=== PATIENT | male | born 1995 | race Hispanic/Latino ===

== ENCOUNTER 2018-09-07 15:52 | Emergency (ER) | payer MEDICAID, OTHER ==
[~2018-09-07 15:52] MED LIST: ESOM40CA PO
[2018-09-07] MEDS ORDERED: IBUPROFEN 600 MG TABLET ONE (16:37)
== END 2018-09-07 16:40 | disposition home or self-care (01) ==
LOC: EDH 15:52
DX: S39.012A Strain of muscle, fascia and tendon of lower back, initial encounter (principal); Z72.0 Tobacco use; V59.49XA Driver of pick-up truck or van injured in collision with other motor vehicles in traffic accident, initial encounter; Y93.89 Activity, other specified; Y92.488 Other paved roadways as the place of occurrence of the external cause; Y99.8 Other external cause status

== ENCOUNTER 2019-04-10 12:40 | Emergency (ER) | payer OTHER ==
[2019-04-10] MEDS ORDERED: LIDOCAINE HCL 2% VISCOUS 15 ML UDCUP ONE (13:26)
[2019-04-10] MEDS ORDERED: SODIUM CHLORIDE 0.9% 1000ML 1,000 ML IV ONE (13:26)
[2019-04-10] MEDS ORDERED: ONDANSETRON HCL 4 MG/2 ML VIAL ONE (13:27)
[2019-04-10] MEDS ORDERED: MAG HYDROX/AL HYDROX/SIMETH ES 30 ML SUSP UDCUP ONE (13:27)
[2019-04-10 13:45] LABS: BASOPHILS % (AUTO) 0.4 % (0.0-5.0); EOSINOPHILS % (AUTO) 0.1 % (0.0-8.0); HEMATOCRIT 47.7 % (42-54); LYMPHOCYTES % (AUTO) 15.8 % (21.0-51.0); MEAN CORPUSCULAR HEMOGLOBIN 30.2 pg (27.0-33.0); MEAN CORPUSCULAR HGB CONC 34.8 g/dL (32.0-36.0); MEAN CORPUSCULAR VOLUME 86.6 fL (80-100); MONOCYTES % (AUTO) 6.3 % (3.0-13.0); NEUTROPHILS % (AUTO) 77.4 % (40.0-77.0); NUCLEATED RED BLOOD CELLS 0.1 % (0.0-0.19); PLATELET COUNT (AUTO) 204 K/uL (130-400); RED CELL DISTRIBUTION WIDTH 13.6 % (11.0-15.5); WHITE BLOOD COUNT (AUTO) 9.4 K/uL (4.8-10.8)
[2019-04-10 14:04] LABS: POTASSIUM 3.8 mmol/L (3.5-5.1)
[2019-04-10 14:09] LABS: ALBUMIN 3.5 g/dL (3.5-5.0); BILIRUBIN,TOTAL 0.4 mg/dL (0.2-1.0); TOTAL PROTEIN, SERUM 6.4 g/dL (6.0-8.3)
[2019-04-10 14:32] LABS: APPEARANCE,URINE Cloudy (CLEAR); BILIRUBIN,URINE Negative (NEGATIVE); COLOR,URINE Yellow (YELLOW); GLUCOSE, URINE (UA) Negative (NEGATIVE); KETONES,URINE Negative (NEGATIVE); LEUKOCYTE ESTERASE ,URINE Negative (NEGATIVE); NITRATE,URINE Negative (NEGATIVE); OCCULT BLOOD,URINE Negative (NEGATIVE); PH,URINE 7.5 (5.0-8.0); PROTEIN,URINE Trace mg/dL (NEGATIVE)
[2019-04-10 14:46] LABS: AMORPHOUS SEDIMENT,UR Moderate /LPF (None Seen); BACTERIA,URINE Few /HPF (None Seen); MUCUS,URINE Many LPF (None Seen); SPERM,URINE Few /HPF (None Seen)
== END 2019-04-10 15:22 | disposition home or self-care (01) ==
LOC: EDH 12:40
DX: K29.00 Acute gastritis without bleeding (principal); Z72.0 Tobacco use
CPT/HCPCS: 36415; 80053; 81001; 83690; 85025; 96361; 96374; 99285; J2405; J7030

== ENCOUNTER 2022-04-17 12:45 | Emergency (ER) | payer OTHER ==
[~2022-04-17] VITALS: Ht 182.9 cm; Wt 102.1 kg
[2022-04-17 13:22] LABS: BASOPHILS % (AUTO) 0.1 % (0.0-5.0); EOSINOPHILS % (AUTO) 0.7 % (0.0-8.0); HEMATOCRIT 44.3 % (42-54); LYMPHOCYTES % (AUTO) 22.6 % (21.0-51.0); MEAN CORPUSCULAR HEMOGLOBIN 28.8 pg (27.0-33.0); MEAN CORPUSCULAR HGB CONC 34.1 g/dL (32.0-36.0); MEAN CORPUSCULAR VOLUME 84.4 fL (79-99); MONOCYTES % (AUTO) 6.4 % (3.0-13.0); NEUTROPHILS % (AUTO) 69.9 % (40.0-77.0); PLATELET COUNT (AUTO) 246 K/uL (130-400); RED BLOOD CELL COUNT(AUTO) 5.25 MIL/uL (4.50-6.20); RED CELL DISTRIBUTION WIDTH 13.2 % (11.0-15.5); WHITE BLOOD COUNT (AUTO) 8.7 K/uL (4.8-10.8)
[2022-04-17 13:32] LABS: CREATININE 1.1 mg/dL (0.5-1.5); POTASSIUM 4.1 mmol/L (3.5-5.1)
[2022-04-17 13:37] LABS: ALBUMIN 3.9 g/dL (3.5-5.0); TOTAL PROTEIN, SERUM 7.6 g/dL (6.0-8.3)
[2022-04-17] MEDS ORDERED: CEPH500B PO (15:44)
[2022-04-17] MEDS ORDERED: CEFTRIAXONE 1G VIAL ONE (15:53)
[2022-04-17] MEDS ORDERED: CEFTRIAXONE 1G VIAL IM ONE (16:00)
[2022-04-17] MEDS ORDERED: CLIN-141 PO (16:05)
[2022-04-17 16:08] VITALS: BP 122/67
== END 2022-04-17 16:08 | disposition home or self-care (01) ==
LOC: EDH 12:52
DX: L02.214 Cutaneous abscess of groin (principal)
CPT/HCPCS: 99283; 10060; 80053; 85025; 36415; J0696

== ENCOUNTER 2024-01-28 10:35 | Emergency (ER) | payer BC ==
[~2024-01-28] VITALS: Ht 182.9 cm; Wt 59.0 kg
[~2024-01-28 10:35] MED LIST changes: +CLIN-141 PO
[2024-01-28 11:23] LABS: APPEARANCE,URINE CLEAR (CLEAR); BILIRUBIN,URINE NEGATIVE (NEGATIVE); COLOR,URINE LIGHT-YELLOW (YELLOW); GLUCOSE, URINE (UA) NEGATIVE (NEGATIVE); KETONES,URINE NEGATIVE (NEGATIVE); LEUKOCYTE ESTERASE ,URINE NEGATIVE Leu/uL (NEGATIVE); NITRATE,URINE NEGATIVE (NEGATIVE); OCCULT BLOOD,URINE NEGATIVE (NEGATIVE); PH,URINE 6.5 (5.0-8.0); PROTEIN,URINE NEGATIVE (NEGATIVE); UROBILINOGEN,URINE 0.2 mg/dL (0.2-1.0)
[2024-01-28] MEDS: IBUPROFEN 800 MG TAB PO ONE (11:24)
[2024-01-28 11:27] LABS: ADD UA MICROSCOPIC NO
[2024-01-28 11:30] LABS: HEMATOCRIT 44.9 % (42-54); MEAN CORPUSCULAR HEMOGLOBIN 28.8 pg (27.0-33.0); MEAN CORPUSCULAR HGB CONC 34.3 g/dL (32.0-36.0); MEAN CORPUSCULAR VOLUME 83.9 fL (79-99); PLATELET COUNT (AUTO) 233 K/uL (130-400); RED BLOOD CELL COUNT(AUTO) 5.35 MIL/uL (4.50-6.20); RED CELL DISTRIBUTION WIDTH 13.1 % (11.0-15.5); WHITE BLOOD COUNT (AUTO) 9.5 K/uL (4.8-10.8)
[2024-01-28 11:40] LABS: BASOPHILS # (AUTO) 0.03 K/uL (0.00-0.20); BASOPHILS % (AUTO) 0.3 % (0.0-5.0); EOSINOPHILS # (AUTO) 0.04 K/uL (0.00-0.70); EOSINOPHILS % (AUTO) 0.4 % (0.0-8.0); IMMATURE GRANULOCYTE ABSOLUTE 0.02 K/uL (0-1); LYMPHOCYTES # (AUTO) 1.8 K/uL (1.0-4.8); LYMPHOCYTES % (AUTO) 18.2 % (21.0-51.0); MONOCYTES # (AUTO) 0.7 K/uL (0.1-1.0); MONOCYTES % (AUTO) 7.1 % (3.0-13.0); NEUTROPHILS # (AUTO) 7.1 K/uL (1.8-7.7); NEUTROPHILS % (AUTO) 73.8 % (40.0-77.0)
[2024-01-28 12:06] LABS: POTASSIUM 4.2 mmol/L (3.5-5.1)
[2024-01-28] MEDS ORDERED: IBUP-2077 PO (12:15)
[2024-01-28 12:26] VITALS: BP 126/80; PULSE 80; RESP 18; O2SAT 97
== END 2024-01-28 12:27 | disposition home or self-care (01) ==
LOC: EDH 10:35
DX: G89.29 Other chronic pain (principal); M54.59 Other low back pain; Z79.899 Other long term (current) drug therapy; Z98.890 Other specified postprocedural states
CPT/HCPCS: 36415; 80048; 81003; 85025

== ENCOUNTER 2024-08-25 18:34 | Emergency (ER) | payer SELFPAY ==
[~2024-08-25] VITALS: Ht 180.3 cm; Wt 104.3 kg
[~2024-08-25 18:34] MED LIST changes: +IBUP-2077 PO
--- NOTE | 2024-08-25 19:05 | HMCIMG ---
CT CHEST WITH CONTRAST. CT ABDOMEN WITH CONTRAST. CT PELVIS WITH CONTRAST INDICATION: Lower back pain after fall from ladder TECHNIQUE: Routine 5 mm thick axial images were acquired from the thoracic inlet through the pelvis after the intravenous administration of 100 mL of Isovue [address] was performed with one or more of the following dose reduction techniques: Automated exposure control, adjustment of the mA and/or kV according to patient size, or use of iterative reconstruction technique. COMPARISON: None FINDINGS: CT CHEST: The heart size is normal. No pericardial effusion noted. No evidence for thoracic aortic aneurysm or dissection.. The trachea and airways are patent. No evidence for pulmonary nodule, consolidation, cavitary lesion, or other abnormal pulmonary parenchymal opacity. No axillary, hilar, or mediastinal lymphadenopathy. No pleural effusion or pneumothorax identified. CT ABDOMEN: The liver is normal in size and smooth in contour without lesions or biliary duct dilation. The spleen is normal in size.. The gallbladder appears normal. The pancreas appears normal without pancreatic duct dilation. The adrenal glands appear normal. Both kidneys appear normal. . No evidence for intra-abdominal free air or free or organized fluid collection. No aortic aneurysmal dilation.. CT PELVIS: Moderate posterior right hip soft tissue swelling. No evidence for free air or free or organized pelvic fluid collection. No significant pelvic adenopathy detected. Visualized small and large bowel loops appear unremarkable. Terminal ileum also appears normal. The appendix appears normal. Shallow posterior disc-osteophyte complex formation at the L4-L5 level contributing to mild central canal stenosis. Lumbar spine appears normal and visible portions of the thoracic spine appear normal. IMPRESSION: Moderate posterior right hip soft tissue swelling without evidence for any acute thoracic, abdominal, pelvic, or spinal injury.
[2024-08-25] MEDS: HYDROcodone/APAP 5/325 1 TAB TABLET PO ONE (19:15)
[2024-08-25 19:33] VITALS: BP 138/86; PULSE 84; RESP 18; TEMP 98.6; O2SAT 100
--- NOTE | 2024-08-25 19:36 | ERN ---
General Chief Complaint: Low Back Pain/Injury Stated Complaint: FALL FROM LADDER, BACK PAIN Time Seen by MD: 18:37 Time Seen by Midlevel: 18:37 Source: patient History of Present Illness Initial Comments Patient is a 29-year-old male with no significant past medical history presenting to the emergency department with right-sided hip pain. Patient states he was on a ladder approximately four steps up when he accidentally lost balance and fell onto his right side onto concrete. Denies any head injury or loss of consciousness. The patient was able to ambulate after the fall but is having significant amount of pain to his right hip. Denies any other symptoms at this time. Denies any urinary/bowel incontinence. Allergies: Coded Allergies: No Allergy Information Available (Verified Allergy, Unknown, 05/31/14) Home Meds Active Scripts Ibuprofen (Ibuprofen 800 mg Tab) 800 Mg Tab, 800 MG PO Q8H PRN for fever or pain, #30 TAB 0 Refills Prov:LISA MAK GRAVITY PROSPECTING OPERATOR HELPER 01/28/24 Clindamycin HCl (Clindamycin HCl) 300 Mg Capsule, 1 CAP PO QID for 7 Days, #28 CAP 0 Refills Prov:MAHNAZ TAI GRAVITY PROSPECTING OPERATOR HELPER 04/17/22 Reported Medications Esomeprazole Magnesium (Nexium) 40 Mg Capsule.dr, 40 MG PO DAILY, CAP 05/31/14 Past Medical History Past Medical History: No Pertinent History Past Surgical History: Other, None Surgical History Other: RT FOOT SX (5) ROS Dictation CONSTITUTIONAL: Negative except for HPI HEAD/FACE: Negative except for HPI EENT: Negative except for HPI RESPIRATORY: Negative except for HPI GASTROINTESTINAL/ABDOMINAL: Negative except for HPI GENITOURINARY: Negative except for HPI MUSCULOSKELETAL: Negative except for HPI INTEGUMENTARY: Negative except for HPI NEUROLOGICAL/PSYCH: Negative except for HPI HEMATOLOGIC/LYMPHATIC: Negative except for HPI All Systems Negative, Except as noted above. 13 point review of systems assessed and all negative except for above. Physical Exam Physical Exam Dictation Vital Signs reviewed General Appearance: Alert, oriented x 3, no acute distress, well developed, nourished. Head and Face: non-traumatic. Eyes: PERRL, pink conjunctivas, eyelid no trauma, anterior chamber with arcus senilis. Ears: Pinnas intact and no signs of trauma or erythema ear canals clear and no discharge TM no erythema Nose: No discharge, no bleeding. Oropharynx: Mouth normal, tongue pink, pharynx clear,no erythema, tonsils no exudates, no abscesses noted, mucous membrane moist Neck: Supple, non-tender, no thyromegaly, no masses, no JVD, no bruits Breast:Deferred Chest:No tenderness, no crepitus, no paradoxical movement, no retractions Lungs:Clear, well-ventilated, symmetric, no rales, no wheezing, no rhonchi, no stridor, good breath sounds bilaterally Heart: Regular rate, regular rhythm, no murmur, no gallops Vascular: no peripheral edema, Abdomen: Soft, positive bowel sounds, nondistended, no guarding, nontender, no rebound, no masses no hepatomegaly, no splenomegaly, no Roldan's sign, no hernias. Rectal: Deferred Genital: Deferred Neurological: Normal speech, motor function intact, sensory function intact Musculoskeletal: Neck nontender, full range of motion, back nontender, full range of motion, Extremities: Moderate posterior right hip soft tissue swelling/tenderness Skin: Color pink, dry, no turgor, no rash, no lacerations, no abrasions, no contusions. Lymphatic: Deferred MDM MDM: Patient is a 29-year-old male with no significant past medical history presenting to the emergency department with right-sided hip pain. Patient states he was on a ladder approximately four steps up when he accidentally lost balance and fell onto his right side onto concrete. Denies any head injury or loss of consciousness. The patient was able to ambulate after the fall but is having significant amount of pain to his right hip. Denies any other symptoms at this time. Denies any urinary/bowel incontinence. On physical examination the patient has some [id number] right hip swelling and tenderness. Range motion is intact. There was no neurological deficits. Patient has 5/5 strength to bilateral upper and lower extremities. GCS of 15. CT scan of the chest abdomen and pelvis was obtained which reveals moderate posterior right hip soft tissue swelling without any evidence for any acute thoracic/abdominal/pelvic or spinal injury. The patient will be discharged home with close return precautions Differential diagnosis: Fracture, contusion, dislocation There are no social concerns with this patient. Prescription drug management Prescriptions will include: None Medical management and examination interpretation discussions were had by me with other qualified healthcare professionals as indicated for the patient's c are. ED Course Orders Procedure Category Date Status Time Ct Chest/Abd/Pelv W/O CT 08/25/24 Resulted Contrast 18:38 Hydrocodone/Apap PHA 08/25/24 Complete 5/325 ([place] 5/325mg) 19:00 Current Medications Medications (Trade) Dose Ordered Sig/Roshni Route PRN Reason Start Time Stop Time Status Last Admin Dose Admin Acetaminophen/ Hydrocodone Bitart (NORco 5/325MG) 1 tab ONCE ONCE PO 08/25/24 19:00 08/25/24 19:01 DC 08/25/24 19:15 Vital Signs Date Time Temp Pulse Resp B/P (MAP) Pulse Ox O2 Delivery O2 Flow Rate FiO2 08/25/24 19:33 98.6 84 18 138/86 100 Room Air* 0 21 08/25/24 18:37 100.0 83 16 149/82 100 Room Air 0 DX & DISP Disposition: Discharge Departure Impression: Primary Impression: Fall Additional Impression: Contusion of right hip Condition: Stable Additional Instructions: Your CT scan of the chest/abdomen/pelvis does not show any acute injury. The only thing your CT scan shows is right hip soft tissue swelling which is consistent with a bruise/hematoma. You may take Tylenol and Motrin as needed for pain Follow up with your primary care doctor in 2-3 days for repeat evaluation. Referrals: LAXMI OCAMPO MD (PCP) Time of Disposition: 19:32 I have reviewed the case, and I agree with, Diagnosis and Plan I performed the substantive portion of the visit. I have reviewed and personally made and approve the management plan that is documented in the note by myself or the SANJIV. I acknowledge for responsibility for the patient's management plan. ARIADNA FRANKLIN Aug 25, 2024 19:36 ELMA CABRERA DO Aug 26, 2024 07:14
== END 2024-08-25 19:49 | disposition home or self-care (01) ==
LOC: EDH 18:34
DX: S70.01XA Contusion of right hip, initial encounter (principal); Z79.899 Other long term (current) drug therapy; W18.39XA Other fall on same level, initial encounter; Y93.89 Activity, other specified; Y92.89 Other specified places as the place of occurrence of the external cause; Y99.8 Other external cause status
CPT/HCPCS: 71250; 74176; 99284